=== PATIENT | female | born 1955 | race Caucasian/White ===

== ENCOUNTER 2023-01-19 11:11 | Outpatient (AMB) | payer MEDICARE, SELFPAY ==
--- NOTE | 2023-01-19 11:17 | MHC.OFFWIV ---
Intake Vital Signs 01/19/23 11:31 Height 5 ft 4.5 in Weight 192 lb BMI 32.4 BP 138/70 Blood Pressure Location Rt brachial Position Sitting Pulse 65 Pulse Source Pulse Oximeter Temp 96.9 F Temp Source Temporal Artery Scan Pulse Oximetry (%) 99 Oxygen Delivery Method Room Air Intake Visit Reasons: EP sinus infection since Tue. Intake Note: Pt is here c/o post nasal drip, cough and head congestion. Patient Tobacco Use Status: Never used Tobacco Allergies Cephalosporins Adverse Reaction (Intermediate, Verified 01/19/23 11:30) Rash Penicillins Adverse Reaction (Intermediate, Verified 01/19/23 11:30) Rash Sulfa (Sulfonamide Antibiotics) Adverse Reaction (Intermediate, Verified 01/19/23 11:30) Swelling Do you need a note to return to daycare/school/sports/work: No HPI EP sinus infection since Tue. HPI Details 67 year old female patient presents with a one week history of sinus pressure/congesion. Has tried OTC cold/flu products, decongestants, cough drops, and used a neti-pot, all with minimal relief. She reports some generalized fatigue. Denies fever/chills. Denies shortness of breath but has had a persistent postnasal drip and productive cough. Covid test at home was negative. [facility] Patient Tobacco Use Status: Never used Tobacco Review of Systems Const All systems reviewed & are unremarkable except as noted in HPI and below Physical Exam Vital Signs: Last Vital Signs Temp 96.9 F 01/19/23 11:31 Pulse 65 01/19/23 11:31 BP 138/70 01/19/23 11:31 Pulse Ox 99 01/19/23 11:31 Oxygen Delivery Method Room Air 01/19/23 11:31 BMI result Body Mass Index 32.4 Const General: cooperative and no acute distress HEENT Head: Yes normal to inspection Ears: hearing grossly normal bilaterally General nose exam: Normal external nose present and Nasal discharge present mucoid Mouth: Normal oral and palatal mucosa present and moist mucous membranes Throat: Yes postnasal drainage Resp Effort & Inspection: normal respiratory effort, able to speak in complete sentences and Actively coughing Quality: productive Auscultation: clear to auscultation bilaterally and rhonchi (mild) upper bilaterally Cardio Jugular venous distension: no JVD Palpation: normal PMI Rate: regular rate Rhythm: regular rhythm Skin General skin exam: no rashes or lesions noted Extrem General: Yes capillary refill normal and Yes no clubbing, cyanosis or edema Psych Appearance: grossly normal Mental Status: mental status grossly normal Speech and movement: Normal speech and movement present Assessment & Plan Assessment & Plan (1) Acute sinusitis: Code(s): J01.90 - Acute sinusitis, unspecified Qualifiers: Sinusitis location: maxillary Recurrence: non-recurrent Qualified Code(s): J01.00 - Acute maxillary sinusitis, unspecified Plan: Patient with acute sinusitis, which she reports she gets about once per year. Multiple abx allergies but has done well in previous years on Biaxin. Will send this BID 7 days. Reviewed indications, use, possible s/e. Advised to return to the clinic or PCP if she does not improve with treatment and ongoing conservative measures, or if symptoms worsen/new symptoms develop. She verbalizes understanding and agrees to plan. Medications: New clarithromycin 500 mg PO BID 14 tabs 0RF J01.00 - Acute maxillary sinusitis, unspecified Coding Level of Care Code Est Pt Level 3 (97357) Diagnoses Acute non-recurrent maxillary sinusitis J01.00 Sinusitis location: maxillary Recurrence: non-recurrent
[2023-01-19 11:31] VITALS: BP 138/70; PULSE 65; TEMP 36.1; O2SAT 99; BMI 32.4
== END 2023-01-19 12:06 | disposition home or self-care (01) ==
PROVIDERS: Visit Provider Nurse Practitioner Family
DX: J01.00 Acute maxillary sinusitis, unspecified (principal)
CPT/HCPCS: 99213